=== PATIENT | male | born 1970 | race Caucasian/White ===

== ENCOUNTER 2018-10-26 06:12 | Day surgery (SDC) | payer MEDICAID ==
[2018-10-24 11:45] LABS: HEMATOCRIT 42.7 % (42.0-54.0); HEMOGLOBIN 14.8 g/dL (13.5-17.5); MCH 30.8 pg (26.0-34.0); MCHC 34.7 g/dL (31.0-37.0); MEAN PLATELET VOLUME 9.6 fL (7.4-10.4); RBC 4.8 10x6/uL (4.20-6.10); RDW 12.4 % (11.5-14.5); WBC 8.5 10x3/uL (4.8-10.8)
[2018-10-24 11:56] LABS: CALC OSMOLALITY 284 mosm/kg (275-300); CALCIUM 8.8 mg/dL (8.5-10.1); CARBON DIOXIDE 28.2 mmol/L (21.0-32.0); CHLORIDE - SERUM 104 mmol/L (98-107); GLUCOSE 118 mg/dL (74-106); POTASSIUM - SERUM 4.1 mmol/L (3.5-5.1); SODIUM 141 mmol/L (136-145); UREA NITROGEN 20 mg/dL (7-18); eGFR NON AFRICAN AMERICAN 85 mL/min (90-120)
[~2018-10-26] VITALS: Ht 172.7 cm; Wt 94.8 kg
[~2018-10-26 06:12] MED LIST: ALBUTEROL0.63 MG/3; CYCLOBENZAPRINE5 MG PO; HYDROCODON-ACE1 EAC2 PO; IBUPROFEN800 MG PO; LISINOPRIL-HCT1 EAC7 PO; NORVASC10 MG PO; TRAZODONE HCL150 MG PO; ZYBAN150 MG PO
[2018-10-26 07:47] VITALS: BP 170/111; Ht 172.7 cm; Wt 94.8 kg
[2018-10-26] MEDS ORDERED: DILAUDID4 MG PO (10:08)
--- NOTE | 2018-11-01 12:10 | OP ---
PATIENT NAME: SCAR CTULER MEDICAL RECORD: [id number] :70 LOCATION:[facility] ADMISSION DATE: SURGEON: JEREMY SHERWOOD MD DATE OF OPERATION: 10/26/2018 PREOPERATIVE DIAGNOSIS: Massive rotator cuff tear of the right shoulder. POSTOPERATIVE DIAGNOSIS: Massive rotator cuff tear of the right shoulder. PROCEDURE: Open rotator cuff repair with subacromial decompression, distal clavicle excision. SURGEON: Jeremy Sherwood MD LEGAL INSTRUMENTS EXAMINER: Anahy Mireles INTRAOPERATIVE COMPLICATIONS: None. SUMMARY OF PATHOLOGIC FINDINGS: The patient had a very large tear of the supraspinatus tendon. Unfortunately, the infraspinatus tendon was torn as well and retracted and required substantial reconstructive effort. This was done with a combination of FiberWires as well as the Arthrex bridging technique with medial and lateral FiberTape technology thusly resulting in an excellent repair. OPERATIVE SUMMARY IN DETAIL: After obtaining the appropriate preoperative orthopedic surgery consent as well as anesthetic consultation, evaluation and clearance, the patient was brought to the operating room and placed on the operating table in supine position. After adequate general laryngeal mask airway was administered, the patient was placed in a beach chair position. All pressure points were well padded. The patient was held firmly to the operating table using vacuum pack suction system. Right upper extremity and shoulder were then prepped and draped in routine sterile fashion. Incision was made from the acromioclavicular joint across the anterolateral aspect of the acromion. This was then taken down to the level of the deltoid fascia. Deltoid cuff was retained for deltoid reapproximation of the acromion. At this point, joint fluid was noted. Deltoid was then attached. Serial and sequential dissection around the rotator cuff led to the above findings. The rotator cuff found at the anterior supraspinatus aspect while bad enough was not the only tear. The infraspinatus tear was found and serial and sequentially mobilized while holding it with #2 Ethibond. It was mobilized both anterior and superior rotator cuff with excellent mobility. This was then reapproximated and the posterior rotator cuff tear was primarily closed [id number] fashion and ekvd-mc-gocn fashion as the patient had good labral tissue back there. However, as the supraspinatus tendon tear was dissected free of all fibrous tissue, it was noted that the supraspinatus was very mobile and looked like a more recent tear of the two. Medial row SwiveLocks were placed with the FiberTape. These were then passed through the rotator cuff and crisscross fashion was then utilized for reapproximation laterally. Excellent rotator cuff coverage was noted with good tamponade of the supraspinatus tendinous footprint. Please note that prior to doing this, a subacromial decompression was done with a sagittal saw as was distal clavicle excision. This resulted in good clearance of the rotator cuff tear. Having completed this, the wound was copiously irrigated and then the deltoid was reapproximated to the acromion in an imbricated [id number] fashion using #2 Ethibond. This got the deltoid back up in an excellent position. The residual of the deltoid was closed with #2 Ethibond, followed by OPERATIVE REPORT [id number] JOI CUTLERY #1 Vicryl, 2-0 Vicryl and skin grant. This was done by Anahy Mireles SA. Final closure was achieved with skin grant. Sterile dressings were applied. The patient was awakened and taken to recovery room in stable condition. All final needle and sponge counts were correct. TRANSINT:[id number] Voice Confirmation ID: [id number] DOCUMENT ID: [id number] PRESLEY DIAZ, JEREMY MAHAN at 1210 CC: [id number] DICTATION DATE: 10/28/18924 RECYCLING COLLECTIONS DRIVER: 10/28/18 1013 [facility] 10/26/[address] [address]
== END 2018-10-26 11:55 | disposition home or self-care (01) ==
LOC: D.PAN 06:12 → D.OPS 12:30 → D.PAN 12:30
PROVIDERS: Anesthesiology; ATTEND Orthopaedic Surgery
DX: M75.121 Complete rotator cuff tear or rupture of right shoulder, not specified as traumatic (principal)